=== PATIENT | male | born 1975 | race Caucasian/White ===

== ENCOUNTER 2018-12-09 18:33 | Emergency (ER) | payer BC, OTHER ==
[2018-12-09] MEDS ORDERED: KETOROLAC 30 MG/ML 1 ML VIAL IM STA (19:09)
--- NOTE | 2018-12-09 19:21 | XR ---
EXAMINATION TYPE: XR shoulder complete RT DATE OF EXAM: 12/09/2018 COMPARISON: NONE HISTORY: Shoulder pain TECHNIQUE: 3 views FINDINGS: I see no fracture nor dislocation. Joint spaces are normal. There are no pathologic calcifi cations. IMPRESSION: Negative right shoulder exam.
--- NOTE | 2018-12-09 19:38 | ED ---
General Adult HPI - General Chief complaint: Extremity Injury, Upper Stated complaint: RT SHOULDER INJURY Time Seen by Provider: 12/09/18 18:45 Source: patient Mode of arrival: ambulatory Limitations: no limitations - History of Present Illness Initial comments: Patient is a 43-year-old male presents emergency Department with a chief complaint of shoulder pain. Patient reports the pain started on Tuesday at work but he continued working on his car. Patient reports when he woke up this morning the pain has increased in severity. Patient also reports limited range of motion with a rash shoulder. Patient reports the pain is exacerbated with right shoulder abduction above 90. Patient denies any trauma to the right shoulder. Patient denies any popping sensation. Patient denies any numbness or tingling. Patient denies edema, erythema or skin discoloration. - Related Data Previous Rx's Medication Instructions Recorded Naproxen [Naprosyn] 500 mg PO Q12HR #60 tab 05/24/14 Allergies Allergy/AdvReac Type Severity Reaction Status Date / Time No Known Allergies Allergy Verified 12/09/18 18:41 Review of Systems ROS Statement: Those systems with pertinent positive or pertinent negative responses have been documented in the HPI. ROS Other: All systems not noted in ROS Statement are negative. Past Medical History Past Medical History: Hyperlipidemia History of Any Multi-Drug Resistant Organisms: None Reported Past Surgical History: Back Surgery Past Psychological History: No Psychological Hx Reported Smoking Status: Current every day smoker Past Alcohol Use History: Rare Past Drug Use History: None Reported General Exam Limitations: no limitations General appearance: alert, in no apparent distress Head exam: Present: atraumatic, normocephalic, normal inspection Eye exam: Present: normal appearance, PERRL, EOMI Pupils: Present: normal accommodation ENT exam: Present: normal exam, mucous membranes moist, normal external ear exam Neck exam: Present: normal inspection, full ROM Respiratory exam: Present: normal lung sounds bilaterally Cardiovascular Exam: Present: regular rate, normal rhythm, normal heart sounds Extremities exam: Present: normal inspection, tenderness (Tenderness along the anterior aspect of the right shoulder.), normal capillary refill (Bilateral), other (+2 ulnar and radial pulses bilaterally. No bony abnormalities noted in the right shoulder.). Absent: full ROM (Limited range of motion with abduction above 90. Positive empty can test. Positive Baez.) Back exam: Present: normal inspection, full ROM Neurological exam: Present: alert, oriented X3 Psychiatric exam: Present: normal affect, normal mood Skin exam: Present: warm, intact, normal color Course Vital Signs 12/09/18 12/09/18 12/09/18 18:41 18:42 19:53 Temperature 97.8 F 98.2 F Pulse Rate 61 65 Respiratory 181 H 18 18 Rate Blood Pressure 146/89 140/87 O2 Sat by Pulse 98 98 Oximetry Medical Decision Making - Medical Decision Making patient is a 43-year-old male presenting to emergency per with a chief complaint of right shoulder pain. X-rays unremarkable. Patient was given Toradol to alleviate the symptoms. Based on history, physical examination and imaging I suspect the patient to have injured the rotator cuff muscles. Advised the patient to avoid strenuous activity with the right arm. Patient advised to apply cold compress. Patient has a sling at home.. Patient vised alternate between Tylenol and ibuprofen for pain control. Patient advised to follow with orthopedics for further management. Strict return parameters were thoroughly discussed with patient was under sitting and agreeable. Case discussed with physician. Disposition Clinical Impression: Strain of shoulder, right Disposition: HOME SELF-CARE Condition: Stable Instructions (If sedation given, give patient instructions): Shoulder Sprain (ED) Additional Instructions: Please follow up with beauty specialist. Apply cold compress. Alternate between Tylenol and ibuprofen for pain control. Is patient prescribed a controlled substance at d/c from ED?: No Referrals: Suha Marcano DO [Primary Care Provider] - 1-2 days Elias Thorpe MD [STAFF PHYSICIAN] - 1-2 days Time of Disposition: 19:38
[2018-12-09 19:53] VITALS: RESP 18
[2018-12-09 19:54] VITALS: BP 140/87; PULSE 65; TEMP 98.2
== END 2018-12-09 19:53 | disposition home or self-care (01) ==
LOC: EC 18:33
DX: S46.911A Strain of unspecified muscle, fascia and tendon at shoulder and upper arm level, right arm, initial encounter (principal); F17.200 Nicotine dependence, unspecified, uncomplicated; W22.8XXA Striking against or struck by other objects, initial encounter; Y93.89 Activity, other specified
CPT/HCPCS: 73030; 99283; 96372; J1885

== ENCOUNTER 2021-07-19 16:52 | Emergency (ER) | payer OTHER ==
[2021-07-19 16:58] VITALS: RESP 18
[2021-07-19] MEDS ORDERED: DEXAMETHASONE SOD PHOSPHATE 4 MG/ML 1 ML VIAL PO STA (17:18)
--- NOTE | 2021-07-19 17:35 | ED ---
General Adult HPI - General Source: patient, RN notes reviewed Mode of arrival: ambulatory Limitations: no limitations <Suha Chiu - Last Filed: 07/20/21 02:29> <Mayela Guthrie - Last Filed: 07/20/21 21:48> - General Chief complaint: ENT Stated complaint: Sore Throat, Ear Pain Time Seen by Provider: 07/19/21 17:04 - History of Present Illness Initial comments: 45-year-old male presents to the emergency department for evaluation of right ear pain and sore throat. Patient states symptoms began Tuesday with associated ear discomfort and have continued to worsen throughout the weekend. Reports recent GI illness. Has been taking Mucinex with no improvement. States sore throat began today and is accompanied by painful swallowing. Patient denies fever, chills, headache, nasal drainage, cough, congestion, difficulty breathing, and shortness of breath. (Suha Chiu) - Related Data Previous Rx's Medication Instructions Recorded Naproxen [Naprosyn] 500 mg PO Q12HR #60 tab 05/24/14 Amoxicillin 875 mg PO Q12HR 10 Days #20 tablet 07/19/21 Allergies Allergy/AdvReac Type Severity Reaction Status Date / Time No Known Allergies Allergy Verified 07/19/21 16:55 Review of Systems ROS Other: All systems not noted in ROS Statement are negative. <Suha Chiu - Last Filed: 07/20/21 02:29> ROS Other: All systems not noted in ROS Statement are negative. <Mayela Guthrie - Last Filed: 07/20/21 21:48> ROS Statement: Those systems with pertinent positive or pertinent negative responses have been documented in the HPI. Past Medical History Past Medical History: Hyperlipidemia History of Any Multi-Drug Resistant Organisms: None Reported Past Surgical History: Back Surgery Additional Past Surgical History / Comment(s): lipoma removal Past Psychological History: No Psychological Hx Reported Smoking Status: Current every day smoker Past Alcohol Use History: None Reported Past Drug Use History: None Reported <Suha Chiu - Last Filed: 07/20/21 02:29> General Exam Limitations: no limitations (Well-developed, well-nourished male in no acute distress. Initial temperature 98.0, pulse 90, respirations 18, blood pressure 151/103, pulse ox 95% on room air.) General appearance: alert, in no apparent distress Expanded Ear exam: Present: normal external inspection. Absent: auricular trauma TM/Canal exam: Erythema: Right TM, Bulging: Right TM Mouth exam: Present: normal external inspection, tongue normal. Absent: drooling, trismus, muffled voice Throat exam: tonsillar erythema, tonsillomegaly (right side>left side), tonsillar exudate (right sided). negative: R peritonsillar mass, L peritonsillar mass Neck exam: Present: normal inspection, lymphadenopathy (mild right sided anterior cervical lymph node tenderness upon palpation) Respiratory exam: Present: normal lung sounds bilaterally. Absent: respiratory distress, wheezes, rales, rhonchi, stridor, chest wall tenderness Cardiovascular Exam: Present: regular rate, normal rhythm, normal heart sounds. Absent: systolic murmur, diastolic murmur, rubs, gallop, clicks Neurological exam: Present: alert, oriented X3 Psychiatric exam: Present: anxious Skin exam: Present: warm, dry, intact, normal color. Absent: rash <Suha Chiu - Last Filed: 07/20/21 02:29> Course Vital Signs 07/19/21 07/19/21 16:55 18:30 Temperature 98 F 99.5 F Pulse Rate 90 77 Respiratory 18 18 Rate Blood Pressure 151/103 158/96 O2 Sat by Pulse 95 97 Oximetry Medical Decision Making <Suha Chiu - Last Filed: 07/20/21 02:29> <Mayela Guthrie - Last Filed: 07/20/21 21:48> - Medical Decision Making 46-year-old male with no significant past medical history presents to the emergency department for evaluation of sore throat and right ear pain. Upon exam, patient is nontoxic though anxious in appearance. He does appear moderately uncomfortable and is clutching his right ear complaining of pain. The external ear is normal in appearance and nontender to touch, however tympanic membrane is erythematous and bulging. He has been taking an oral decongestant with no improvement. Also complains of a sore throat and painful swallowing. Able to tolerate sips of water, medicine, and applesauce without difficulty. No trismus or muffled voice. Oropharynx is mildly inflamed with a right sided tonsillar exudate. Rapid strep was negative. Patient was given dexamethasone for his pharyngitis. He has started on amoxicillin for right acute otitis media. He was given a dose of Motrin for discomfort. Instructed to continue decongestant for symptomatic treatment. Encouraged to follow up with his PCP for a recheck in 24-48 hours. Return parameters were discussed in detail. Patient verbalizes understanding and agrees with this plan. Attending: Jerri. (Suha Chiu) I was available for consultation in the emergency department. The history and physical exam were done by the midlevel provider. I was consulted for this patients care. I reviewed the case with the midlevel provider and based on their presentation of the patient, I agree with the assessment, medical decision making and plan of care as documented. Chart was dictated using [employer] dictation software. Attempts were made to correct any dictation errors however some typographical errors may persist. (Mayela Guthrie) - Lab Data Lab Results 07/19/21 Range/Units 17:30 Group A Strep Rapid Negative (Negative) Disposition Is patient prescribed a controlled substance at d/c from ED?: No <Suha Chiu - Last Filed: 07/20/21 02:29> <Mayela Guthrie - Last Filed: 07/20/21 21:48> Clinical Impression: Acute otitis media, Pharyngitis Disposition: HOME SELF-CARE Condition: Stable Instructions (If sedation given, give patient instructions): Ear Infection (ED) Additional Instructions: Take antibiotic as directed. Continue decongestant as needed. Alternate Tylenol and Motrin if needed for discomfort or fever. Follow-up with your PCP for a recheck in the next 48-72 hours. Return to the emergency department with any new, worsening, or concerning symptoms. Prescriptions: Amoxicillin 875 mg PO Q12HR 10 Days #20 tablet Referrals: Suha Marcano DO [Primary Care Provider] - 1-2 days
[2021-07-19] MEDS ORDERED: AMOXICILLIN 875 MG TAB PO STA (18:10)
[2021-07-19] MEDS ORDERED: IBUPROFEN 600 MG TAB PO STA (18:15)
[2021-07-19 18:43] VITALS: BP 158/96; PULSE 77; TEMP 99.5
== END 2021-07-19 18:44 | disposition home or self-care (01) ==
LOC: EC 16:52
DX: H66.91 Otitis media, unspecified, right ear (principal); J02.9 Acute pharyngitis, unspecified; F17.200 Nicotine dependence, unspecified, uncomplicated
CPT/HCPCS: 87081; 87430; 99283; J1100